=== PATIENT | female | born 1975 | race Caucasian/White ===

== ENCOUNTER → 2017-03-01 | Outpatient (CLI) | payer SELFPAY | LOC: COL.RAD 15:37 | DX: R76.11 Nonspecific reaction to tuberculin skin test without active tuberculosis (principal); Z95.1 Presence of aortocoronary bypass graft ==

== ENCOUNTER 2018-01-13 08:45 | Emergency (ER) | payer BC ==
[~2018-01-13] VITALS: Ht 167.6 cm; Wt 81.8 kg
[2018-01-13 08:49] VITALS: BP 124/98; TEMP 99.1
[2018-01-13] MEDS ORDERED: ZESTRIL2.5 MG PO (09:09)
[2018-01-13] MEDS ORDERED: CELEXA40 MG PO (09:09)
[2018-01-13] MEDS ORDERED: LIPITOR 40MG TA40 MG PO (09:09)
[2018-01-13] MEDS ORDERED: VALTREX 50500 MG/TAB PO (09:10)
[2018-01-13] MEDS ORDERED: AMITRIPTYLINE H10 M1 PO (09:10)
[2018-01-13] MEDS ORDERED: EC-NAPROSYN500 MG PO (09:11)
[2018-01-13] MEDS ORDERED: PROVENTIL0.09 MG/A1 IH (09:11)
[2018-01-13] MEDS ORDERED: ASPIRIN 81M81 MG/TA2 PO (09:12)
[2018-01-13] MEDS ORDERED: XANAX .25M0.25 MG/TA PO (09:12)
[2018-01-13] MEDS ORDERED: TENORMIN 2525 MG/TAB PO (09:13)
[2018-01-13] MEDS ORDERED: NEURONTIN300 MG/CAP PO (09:13)
[2018-01-13] MEDS ORDERED: HUMALOG100 U/ML SQ (09:13)
[2018-01-13] MEDS ORDERED: ALBUTEROL0.83 MG/ML IH (09:14)
[2018-01-13] MEDS ORDERED: ZITHROMAX Z PA250 MG PO (09:14)
[2018-01-13 09:24] VITALS: PULSE 92
== END 2018-01-13 09:23 | disposition home or self-care (01) ==
LOC: COL.ER 08:45
DX: J40 Bronchitis, not specified as acute or chronic (principal); I25.10 Atherosclerotic heart disease of native coronary artery without angina pectoris; F17.210 Nicotine dependence, cigarettes, uncomplicated; Z90.710 Acquired absence of both cervix and uterus; Z98.890 Other specified postprocedural states; Z90.89 Acquired absence of other organs; Z90.49 Acquired absence of other specified parts of digestive tract; Z79.82 Long term (current) use of aspirin; Z79.4 Long term (current) use of insulin

== ENCOUNTER 2019-07-25 10:12 | Inpatient (IN) | payer SELFPAY ==
[~2019-07-25] VITALS: Ht 167.6 cm; Wt 84.1 kg
[~2019-07-25 10:12] MED LIST: ALBUTEROL0.83 MG/ML IH; AMITRIPTYLINE H10 M1 PO; ASPIRIN 81M81 MG/TA2 PO; CELEXA40 MG PO; EC-NAPROSYN500 MG PO; HUMALOG100 U/ML SQ; LIPITOR 40MG TA40 MG PO; NEURONTIN300 MG/CAP PO; PROVENTIL0.09 MG/A1 IH; TENORMIN 2525 MG/TAB PO; VALTREX 50500 MG/TAB PO; XANAX .25M0.25 MG/TA PO; ZESTRIL2.5 MG PO; ZITHROMAX Z PA250 MG PO
[2019-07-25 10:17] VITALS: TEMP 98
[2019-07-25 10:51] LABS: BASO % 0.4 % (0.0-2.0); EOS # 0.1 (0.0-0.7); EOS % 1.2 % (0-4.0); GRAN % 73.4 % (42.2-75.2); HEMATOCRIT 44.4 % (37.0-47.0); LYMPH # 1.9 (1.2-3.4); LYMPH % 20.2 % (20.0-51.0); MEAN CELL VOLUME 88 fl (80.0-100.0); MEAN CORPUSCULAR HEMOGLOBIN 30 pg (27.0-31.0); MEAN CORPUSCULAR HGB CONC 34 g/dl (33.0-37.0); MONO # 0.4 (0.1-0.6); MONO % 4.6 % (1.7-9.3); PLATELET COUNT 262 K/mm3 (130-400); RED BLOOD COUNT 5.04 M/mm3 (4.10-5.30); REDCELL DISTRIBUTION WIDTH-CV 12.8 % (11.5-14.5)
[2019-07-25 10:56] LABS: INR 0.9 (0.8-3.0); PROTHROMBIN TIME 10.9 SECONDS (9.7-12.8)
[2019-07-25] MEDS ORDERED: LYRICA 150MG C150 MG PO (10:56)
[2019-07-25 10:58] LABS: PARTIAL THROMBOPLASTIN TIME 35.2 SECONDS (26.0-37.0)
[2019-07-25] MEDS ORDERED: MASON NATURAL1200 MG PO (10:59)
[2019-07-25 11:08] LABS: ALANINE AMINOTRANSFERASE 7 U/L (9-52); ALBUMIN 4.2 gm/dL (3.5-5.0); ALKALINE PHOSPHATASE 83 U/L (50-136); ANION GAP 13 mmol/L (7-16); AST,SGOT 15 U/L (15-37); BILIRUBIN,TOTAL 0.4 mg/dL (0.0-1.0); BLOOD UREA NITROGEN 16 mg/dL (7-17); CALCIUM 9.5 mg/dL (8.4-10.2); CARBON DIOXIDE 25 mmol/L (22-30); CHLORIDE 98 mmol/L (98-107); CREATININE, serum 0.69 (0.52-1.25); SODIUM 136 mmol/L (137-145); TOTAL PROTEIN 7.2 gm/dL (6.4-8.2)
[2019-07-25 11:19] LABS: GLUCOSE 488 mg/dL (74-106); TROPONIN-I < 0.012 ng/mL (0.000-0.035)
[2019-07-25 12:16] VITALS: BP 123/67; PULSE 85
--- NOTE | 2019-07-25 13:36 | NUR ---
Pt discharged AMA, Pt was aggitated upon arrival to the floor from the ED, insisted on leaving, AMA paperwork completed and signed by Pt, provider contacted. INT D/Nghia, tip intact. Pt walked off floor with spouse after signing.
== END 2019-07-25 13:40 | disposition left against medical advice (07) | DRG 313 ==
LOC: COL.ER 10:12 → MEDICAL 11:56
PROVIDERS: Family Medicine; ADMIT Hospitalist
DX: R07.9 Chest pain, unspecified (principal); I25.10 Atherosclerotic heart disease of native coronary artery without angina pectoris; T50.996A Underdosing of other drugs, medicaments and biological substances, initial encounter; Z95.1 Presence of aortocoronary bypass graft; E11.9 Type 2 diabetes mellitus without complications; Z53.21 Procedure and treatment not carried out due to patient leaving prior to being seen by health care provider; F17.210 Nicotine dependence, cigarettes, uncomplicated; J44.9 Chronic obstructive pulmonary disease, unspecified; I25.2 Old myocardial infarction; Z90.49 Acquired absence of other specified parts of digestive tract; Z79.82 Long term (current) use of aspirin; Z79.4 Long term (current) use of insulin; Z91.120 Patient's intentional underdosing of medication regimen due to financial hardship
CPT/HCPCS: J1650; J1815